=== PATIENT | female | born 1990 | race American Indian/Alaskan Native ===

== ENCOUNTER 2020-01-22 22:16 | Emergency (ER) | payer SELFPAY ==
[2020-01-22 22:33] VITALS: BP 156/102
[2020-01-22] MEDS ORDERED: ACETAMINOPHEN 325 MG TAB PO ONE (22:42)
[2020-01-22] MEDS ORDERED: ACETAMINOPHEN 325 MG TAB ONE (22:44)
--- NOTE | 2020-01-23 00:29 | XRay Report ---
CHEST 2 VIEWS INDICATION: fever and cough. COMPARISON: None FINDINGS: Support devices: None. Heart: Within normal limits. Lungs: No acute air space or interstitial disease. Pleura: No significant pleural effusion. No pneumothorax. Additional findings: None. IMPRESSION: 1. No acute findings. Signer Name: Santiago Beyer MD Signed: 01/23/2020 12:24 AM Workstation Name: [id number]
--- NOTE | 2020-01-23 02:43 | Emergency Department Report ---
- General Chief Complaint: Upper Respiratory Infection Stated Complaint: COUGH, HEADACHE Time Seen by Provider: 01/23/20 02:33 Source: patient Mode of arrival: Ambulatory Limitations: No Limitations - History of Present Illness Initial Comments: 29-year-old -[place] female patient without significant past medical history presents with complaints of cough, chills, body aches, nasal congestion, headache, and nausea/vomiting x2 days. She admits to contact with an individual on Thursday who had a positive flu test. She denies any recent travel outside the country/contact with individuals who have traveled outside the country/contact with individuals with suspected or known Covid19, hematemesis/coffee-ground emesis, abdominal pain, shortness of breath, chest pain, or dizziness. She reports she did not receive a flu vaccination this season. She has been using BC powders which helps some with her symptoms. - Related Data Previous Rx's Medication Instructions Recorded Last Taken Type Benzonatate 200 mg PO TID PRN #21 capsule 01/23/20 Unknown Rx Ondansetron [Zofran Odt] 4 mg PO Q8HR PRN #12 tab.rapdis 01/23/20 Unknown Rx Oseltamivir [Tamiflu] 75 mg PO BID 5 Days #10 cap 01/23/20 Unknown Rx Allergies Allergy/AdvReac Type Severity Reaction Status Date / Time No Known Allergies Allergy Verified 01/22/20 22:20 ED Review of Systems ROS: Stated complaint: COUGH, HEADACHE Other details as noted in HPI Constitutional: chills, diaphoresis, fever, malaise, weakness ENT: denies: throat pain Respiratory: cough. denies: shortness of breath Cardiovascular: denies: chest pain Gastrointestinal: nausea, vomiting. denies: abdominal pain, diarrhea Genitourinary: denies: dysuria Skin: denies: rash, lesions Neurological: headache. denies: numbness, paresthesias, abnormal gait Hematological/Lymphatic: denies: swollen glands ED Past Medical Hx - Past Medical History Previous Medical History?: No - Surgical History Past Surgical History?: No - Social History Smoking Status: Former Smoker Substance Use Type: None - Medications Home Medications: Home Medications Medication Instructions Recorded Confirmed Last Taken Type Benzonatate 200 mg PO TID PRN #21 capsule 01/23/20 Unknown Rx Ondansetron [Zofran Odt] 4 mg PO Q8HR PRN #12 tab.rapdis 01/23/20 Unknown Rx Oseltamivir [Tamiflu] 75 mg PO BID 5 Days #10 cap 01/23/20 Unknown Rx ED Physical Exam - General Limitations: No Limitations General appearance: alert, in no apparent distress - Head Head exam: Present: atraumatic, normocephalic - Eye Eye exam: Present: normal appearance, PERRL. Absent: scleral icterus - ENT ENT exam: Present: normal orophraynx, mucous membranes moist - Neck Neck exam: Present: normal inspection, full ROM. Absent: tenderness - Respiratory Respiratory exam: Present: normal lung sounds bilaterally. Absent: respiratory distress - Cardiovascular Cardiovascular Exam: Present: regular rate, normal rhythm. Absent: systolic murmur, diastolic murmur, rubs, gallop - GI/Abdominal GI/Abdominal exam: Present: soft, normal bowel sounds. Absent: distended, tenderness - Extremities Exam Extremities exam: Present: normal inspection - Back Exam Back exam: Present: normal inspection - Neurological Exam Neurological exam: Present: alert, oriented X3. Absent: normal gait - Psychiatric Psychiatric exam: Present: normal affect, normal mood - Skin Skin exam: Present: warm, dry, intact, normal color. Absent: rash, cyanosis, diaphoretic, ecchymosis ED Course Vital Signs 01/22/20 01/22/20 01/23/20 22:24 22:36 02:24 Temperature 101.0 F H 99.0 F Pulse Rate 124 H 105 H Respiratory 18 Rate Blood Pressure 156/102 O2 Sat by Pulse 100 99 Oximetry 01/23/20 02:50 Temperature Pulse Rate 88 Respiratory 17 Rate Blood Pressure O2 Sat by Pulse 100 Oximetry ED Medical Decision Making - Lab Data Lab Results 01/22/20 Range/Units Unknown Influenza A (Rapid) Negative (Negative) Influenza B (Rapid) Negative (Negative) - Radiology Data Radiology results: report reviewed CHEST 2 VIEWS INDICATION: fever and cough. COMPARISON: None FINDINGS: Support devices: None. Heart: Within normal limits. Lungs: No acute air space or interstitial disease. Pleura: No significant pleural effusion. No pneumothorax. Additional findings: None. IMPRESSION: 1. No acute findings. - Medical Decision Making Patient here with flulike symptoms for the past 2 days. Rapid flu test is negative, however she admits to contact with an individual who had a positive flu test recently. Chest x-ray is normal. Temp initially 101 F upon arrival, now 99.0 F. No abnormalities noted on physical exam. Patient's lungs are clear. She is well-appearing and stable for discharge home. Patient does not meet criteria for Covid19 testing. Suspect influenza despite negative testing. Prescription for Tamiflu, Zofran, and Tessalon Perls given. Recommend follow- up with primary care provider in 5 days. Discussed importance of hydration and rest and strict return precautions in great detail with patient who verbalizes understanding. Critical care attestation.: If time is entered above; I have spent that time in minutes in the direct care of this critically ill patient, excluding procedure time. ED Disposition Clinical Impression: Flu syndrome Disposition: - TO HOME OR SELFCARE Is pt being admited?: No Condition: Stable Instructions: Influenza (ED) Prescriptions: Benzonatate 200 mg PO TID PRN #21 capsule PRN Reason: Cough Oseltamivir [Tamiflu] 75 mg PO BID 5 Days #10 cap Ondansetron [Zofran Odt] 4 mg PO Q8HR PRN #12 tab.rapdis PRN Reason: Nausea Referrals: PRIMARY CARE, [Primary Care Provider] - 3-5 Days Forms: Work/School Release Form(ED)
== END 2020-01-23 02:57 | disposition home or self-care (01) ==
LOC: ED 22:16
DX: B34.9 Viral infection, unspecified (principal)
CPT/HCPCS: 71046; 87400

== ENCOUNTER 2021-02-07 10:48 | Emergency (ER) | payer SELFPAY ==
[2021-02-07 11:03] VITALS: BP 155/85
[2021-02-07] MEDS ORDERED: BUTALB/ACETAMINOPHEN/CAFFEINE TAB PO ONE (11:18)
[2021-02-07] MEDS ORDERED: dexAMETHasone 4 MG/ML VIAL IM ONE (11:18)
[2021-02-07] MEDS ORDERED: CYCLOBENZAPRINE 10 MG TAB PO ONE (11:18)
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
== END 2021-02-07 12:00 | disposition home or self-care (01) ==
LOC: ED 10:48
DX: S29.012A Strain of muscle and tendon of back wall of thorax, initial encounter (principal); Z87.891 Personal history of nicotine dependence; Z79.899 Other long term (current) drug therapy; V49.49XA Driver injured in collision with other motor vehicles in traffic accident, initial encounter; Y93.89 Activity, other specified; Y92.488 Other paved roadways as the place of occurrence of the external cause; Y99.8 Other external cause status
CPT/HCPCS: 99282